=== PATIENT | male | born 1955 ===

== ENCOUNTER 2020-10-14 07:20 | Outpatient (CLI) | payer OTHER | END 2020-10-14 07:24 | disposition home or self-care (01) | LOC: NUCLEAR 07:20 | PROVIDERS: ATTEND Internal Medicine Pulmonary Disease | DX: R91.1 Solitary pulmonary nodule (principal); R06.02 Shortness of breath; R07.1 Chest pain on breathing | CPT/HCPCS: 78815; A9552 ==